=== PATIENT | female | born 1950 | race Caucasian/White ===

== ENCOUNTER 2021-10-09 19:38 | Inpatient (IN) | payer MEDICARE, MEDICAID ==
[~2021-10-09] VITALS: Ht 152.4 cm; Wt 73.5 kg
[2021-10-09] MEDS ORDERED: VANCOMYCIN 1G PREMIX 200 ML IV SCH (20:45)
[2021-10-09] MEDS ORDERED: CEFTRIAXONE 1 G PREMIX 50 ML IV ONE (20:45)
[2021-10-09] MEDS ORDERED: SODIUM CHLORIDE 0.9% 1000ML BAG (SEPSIS BOLUS) IV ONE (20:45)
[2021-10-09 21:31] LABS: HEMATOCRIT. 37.6 % (36.0-48.0); HEMOGLOBIN. 12.2 g/dL (12.0-16.0); MEAN CORPUSCULAR HEMOGLOBIN 25.8 pg (28.0-32.0); MEAN CORPUSCULAR VOLUME 79.5 fL (81.0-99.0); MEAN PLATELET VOLUME 9.2 fl (7.4-10.4); PLATELET 195 x1000/uL (130-400); RED BLOOD CELL COUNT 4.73 mill/uL (4.2-5.4); RED CELL DISTRIBUTION WIDTH 14.9 % (11.6-14.6)
[2021-10-09 21:39] LABS: CHLORIDE 104 mEq/L (98-107)
[2021-10-09] MEDS ORDERED: VANCOMYCIN 1GM PMX (XELLIA) 200 ML IV NR (22:45)
[2021-10-09] MEDS ORDERED: NOREPINEPHRINE 8 MG in DEXT 5% WATER 242 ML IV PRN (23:00)
[2021-10-10] MEDS ORDERED: NOREPINEPHRINE 8 MG in DEXT 5% WATER 242 ML IV PRN (01:00)
[2021-10-10 02:29] LABS: CLARITY URINE CLEAR (CLEAR); COLOR URINE YELLOW (YELLOW); KETONES URINE NEGATIVE (NEGATIVE); LEUKOCYTE ESTERASE URINE 1+ (NEGATIVE); NITRITE URINE POSITIVE (NEGATIVE); OCCULT BLOOD URINE 1+ (NEGATIVE); PH URINE 5.5 (4.5-8.0); PROTEIN URINE TRACE (NEGATIVE); SPECIFIC GRAVITY URINE 1.014 (1.005-1.030); UROBILINOGEN URINE 0.2 E.U./dL (0.2-1.0)
[2021-10-10 02:46] LABS: PLATELET ESTIMATE NORMAL
[2021-10-10 12:00] VITALS: BP 110/50
[2021-10-10 12:12] VITALS: BP 115/72
[2021-10-10] MEDS ORDERED: CEFTRIAXONE 1 G PREMIX 50 ML IV SCH (13:00)
[2021-10-10] MEDS ORDERED: DEXTROSE 50% WATER 50ML SYRINGE IV PRN (13:00)
[2021-10-10] MEDS: BLOOD SUGAR DIAGNOSTIC STRIP TEST SCH ×2 (13:23→21:00)
[2021-10-10] MEDS: INSULIN LISPRO 100 UNITS/ML SUBCUT SCH ×3 (14:47→21:00)
[2021-10-10] MEDS ORDERED: LOSA1TAB37 MT (15:56)
[2021-10-10] MEDS ORDERED: PANT40TA51 MT (15:56)
[2021-10-10] MEDS ORDERED: CALC-26 MT (15:56)
[2021-10-10] MEDS ORDERED: IBUP-2030 MT (15:56)
[2021-10-10] MEDS ORDERED: METF-414 MT (15:56)
[2021-10-10] MEDS ORDERED: EMPA10TA MT (15:56)
[2021-10-10] MEDS ORDERED: ATEN-42 MT (15:56)
[2021-10-10 16:00] VITALS: BP 106/45
[2021-10-10] MEDS: SODIUM CHLORIDE 0.9% 1,000 ML IV SCH (16:12)
[2021-10-10] MEDS: CEFTRIAXONE 1,000 MG in DEXTROSE 5% WATER 50 ML IV SCH (16:21)
[2021-10-10 20:00] VITALS: BP 110/54
[2021-10-11] VITALS: BP 129/51
[2021-10-11] MEDS: SODIUM CHLORIDE 0.9% 1,000 ML IV SCH (02:20)
[2021-10-11 04:00] VITALS: BP 133/52
[2021-10-11] MEDS: BLOOD SUGAR DIAGNOSTIC STRIP TEST SCH ×2 (06:21→12:19)
[2021-10-11 06:40] LABS: BASOPHILS % 0.5 % (0.0-2.0); EOSINOPHILS % 1.1 % (0.0-5.0); HEMATOCRIT. 35.6 % (36.0-48.0); HEMOGLOBIN. 11.7 g/dL (12.0-16.0); LYMPHOCYTES % 11.4 % (20.0-50.0); MEAN CORPUSCULAR HEMOGLOBIN 25.7 pg (28.0-32.0); MEAN CORPUSCULAR VOLUME 78.4 fL (81.0-99.0); MONOCYTES % 7.2 % (2.0-8.0); NEUTROPHILS % 79.8 % (40.0-76.0); PLATELET 209 x1000/uL (130-400); RED BLOOD CELL COUNT 4.54 mill/uL (4.2-5.4); RED CELL DISTRIBUTION WIDTH 15.1 % (11.6-14.6)
[2021-10-11 07:02] LABS: CHLORIDE 108 mEq/L (98-107)
[2021-10-11 08:00] VITALS: BP 141/47
[2021-10-11] MEDS: INSULIN LISPRO 100 UNITS/ML SUBCUT SCH ×2 (08:23→13:17)
[2021-10-11 12:00] VITALS: BP 115/56
[2021-10-11] MEDS: CEFTRIAXONE 1,000 MG in DEXTROSE 5% WATER 50 ML IV SCH (13:17)
[2021-10-11 16:00] VITALS: BP 117/52
[2021-10-11] MEDS ORDERED: LEVO750T46 MT (16:00)
[2021-10-11 16:17] VITALS: BP 117/52
== END 2021-10-11 18:06 | disposition home or self-care (01) | DRG 871 ==
LOC: ER 19:38 → MICUSO 10-10 01:21 → EDBEDREQTM 10-10 01:38 → EDBEDREQDT 10-10 01:38 → EDBEDREQ 10-10 01:38 → 6WST 10-10 08:57
PROVIDERS: ADMIT Internal Medicine; ATTEND Internal Medicine
DX: A41.51 Sepsis due to Escherichia coli [E. coli] (principal); N17.0 Acute kidney failure with tubular necrosis; N39.0 Urinary tract infection, site not specified; E87.1 Hypo-osmolality and hyponatremia; E44.1 Mild protein-calorie malnutrition; E11.9 Type 2 diabetes mellitus without complications; I10 Essential (primary) hypertension; I95.1 Orthostatic hypotension; R26.9 Unspecified abnormalities of gait and mobility; K76.0 Fatty (change of) liver, not elsewhere classified; M19.90 Unspecified osteoarthritis, unspecified site; R16.2 Hepatomegaly with splenomegaly, not elsewhere classified; E78.00 Pure hypercholesterolemia, unspecified; Z20.822 Contact with and (suspected) exposure to COVID-19; F17.210 Nicotine dependence, cigarettes, uncomplicated; E66.9 Obesity, unspecified; Z68.31 Body mass index [BMI] 31.0-31.9, adult; Z79.899 Other long term (current) drug therapy; Z56.0 Unemployment, unspecified; Z79.84 Long term (current) use of oral hypoglycemic drugs; Z90.711 Acquired absence of uterus with remaining cervical stump; Z71.3 Dietary counseling and surveillance
CPT/HCPCS: 36415; 74176; 80048; 80053; 81003; 82962; 83036; 83605; 84145; 84484; 85025; 87077; 87186; 87426; 93005; 97161; 99291; J0696; J1815; J3370; J3490; J7030; J7060